=== PATIENT | female | born 1995 | race Caucasian/White ===

== ENCOUNTER 2018-12-29 11:23 | Emergency (ER) | payer OTHER ==
[~2018-12-29] VITALS: Ht 162.6 cm; Wt 80.3 kg
[2018-12-29 11:26] VITALS: Ht 162.6 cm; Wt 80.3 kg
[2018-12-29 12:42] LABS: PLATELET COUNT 189 x10^3mcL (130-400); RED CELL DISTRIBUTION WIDTH 13.5 % (11.5-14.5)
[2018-12-29 13:00] LABS: BASOPHIL % 0.1 % (0-2)
[2018-12-29 15:12] VITALS: BP 111/62
== END 2018-12-29 15:12 | disposition home or self-care (01) ==
LOC: ED 11:23
PROVIDERS: Emergency Medicine
DX: O20.0 Threatened abortion (principal); O23.41 Unspecified infection of urinary tract in pregnancy, first trimester; Z3A.01 Less than 8 weeks gestation of pregnancy
CPT/HCPCS: 36415